=== PATIENT | male | born 2000 | race African-American/Black ===

== ENCOUNTER 2023-12-28 20:19 | Emergency (ER) | payer SELFPAY ==
[2023-12-28] MEDS ORDERED: Dexamethasone 4 MG TAB ONE (21:09)
[2023-12-28 22:19] LABS: Influenza A by NAA Not Detected (NotDetected); Influenza B by NAA Not Detected (NotDetected); RSV by NAA Not Detected (NotDetected); SARS-CoV-2 NAA Rapid Test Not Detected (NotDetected)
== END 2023-12-28 22:00 | disposition home or self-care (01) ==
LOC: ERS 20:19
DX: J02.9 Acute pharyngitis, unspecified (principal); J06.9 Acute upper respiratory infection, unspecified
CPT/HCPCS: 0241U; 87081; 87430; 99283; J8540